=== PATIENT | male | born 1935 | race Caucasian/White ===

== ENCOUNTER → 2023-07-06 08:36 | Outpatient (REF) | payer OTHER, SELFPAY ==
[2023-07-06 09:30] LABS: Glycohemoglobin (HgbA1c) 7.2 % (4.0-5.6)
[2023-07-06 09:49] LABS: ALT (SGPT) 15 U/L (0-50); AST (SGOT) 23 U/L (17-59); Albumin 4.5 g/dl (3.5-5.0); Alkaline Phosphatase 71 U/L (38-126); Blood Urea Nitrogen 19 mg/dl (9-20); Calcium 9.5 mg/dl (8.4-10.2); Carbon Dioxide 27 mmol/L (22-30); Chloride 107 mmol/L (98-107); Glucose 135 mg/dl (70-99); Potassium 4.4 mmol/L (3.5-5.1); Sodium 140 mmol/L (135-145); Total Cholesterol 137 mg/dl (50-199); Total Protein 7.2 g/dl (6.3-8.2); Triglyceride 110 mg/dl (10-149); Very Low Density Lipoprotein 22 mg/dl (0-30); eGFR 58.53
[2023-07-06 09:50] LABS: HDL Cholesterol 50 mg/dl; LDL Cholesterol, Calculated 65 mg/dl
== END ==
LOC: REG 08:36
PROVIDERS: ATTENDING PHYSICIAN Family Medicine
DX: E11.59 Type 2 diabetes mellitus with other circulatory complications (principal); I10 Essential (primary) hypertension; I25.10 Atherosclerotic heart disease of native coronary artery without angina pectoris; Z68.30 Body mass index [BMI] 30.0-30.9, adult
CPT/HCPCS: 36415; 80053; 80061; 83036

== ENCOUNTER → 2023-12-18 08:01 | Outpatient (REF) | payer OTHER, SELFPAY | LOC: RCS 08:01 | PROVIDERS: ATTENDING PHYSICIAN Internal Medicine Cardiovascular Disease; FAMILY PHYSICIAN Family Medicine | DX: I47.20 Ventricular tachycardia, unspecified (principal); Z95.2 Presence of prosthetic heart valve; I44.2 Atrioventricular block, complete | CPT/HCPCS: 93306 ==

== ENCOUNTER → 2024-01-03 07:40 | Outpatient (REF) | payer OTHER, SELFPAY ==
[2024-01-03 10:25] LABS: % Basophils 0.5 % (0-2); % Eosinophils 0.6 % (0-6); % Immature Granulocytes 0.3 % (0-0.5); % Lymphocytes 14.7 % (20.5-51.1); % Monocytes 9.3 % (1.7-9.3); % Neutrophils 74.6 % (42.2-75.2); Absolute Lymphocytes 0.9 10^3/uL (1.2-3.4); Absolute Monocytes 0.6 10^3/uL (0.1-0.6); Absolute Neutrophils 4.7 10^3/uL (1.4-6.5); Hematocrit 47.4 % (39.0-52.0); Hemoglobin 15.8 g/dL (13.0-18.0); Mean Corp Hgb Conc. 33.3 g/dL (33.0-37.0); Mean Corpuscular Hgb 28.4 pg (27.0-31.0); Mean Corpuscular Volume 85.1 fL (80.0-94.0); Mean Platelet Volume 9.5 fL (7.4-10.4); Nucleated Red Blood Cells % 0 % (-); Platelet Count 143 10^3/uL (130-400); Red Blood Cell Count 5.57 10^6/uL (4.70-6.10); Red Cell Dist. Width 12.8 % (11.5-14.5); White Blood Cell Count 6.3 10^3/uL (4.8-10.8)
[2024-01-03 10:36] LABS: ALT (SGPT) 15 U/L (0-50); AST (SGOT) 28 U/L (17-59); Albumin 4.4 g/dl (3.5-5.0); Alkaline Phosphatase 59 U/L (38-126); Blood Urea Nitrogen 19 mg/dl (9-20); Calcium 9.5 mg/dl (8.4-10.2); Carbon Dioxide 24 mmol/L (22-30); Chloride 105 mmol/L (98-107); Glucose 117 mg/dl (70-99); HDL Cholesterol 58 mg/dl; LDL Cholesterol, Calculated 65 mg/dl; Potassium 4.3 mmol/L (3.5-5.1); Sodium 142 mmol/L (135-145); Total Bilirubin 1.2 mg/dl (0.2-1.3); Total Cholesterol 142 mg/dl (50-199); Total Protein 6.9 g/dl (6.3-8.2); Triglyceride 98 mg/dl (10-149); Very Low Density Lipoprotein 19 mg/dl (0-30); eGFR 48.65
[2024-01-03 12:17] LABS: Glycohemoglobin (HgbA1c) 6.6 % (4.0-5.6)
== END ==
LOC: REG 07:40
PROVIDERS: ATTENDING PHYSICIAN Family Medicine
DX: E11.59 Type 2 diabetes mellitus with other circulatory complications (principal); I10 Essential (primary) hypertension
CPT/HCPCS: 36415; 80053; 80061; 83036; 85025

== ENCOUNTER → 2024-12-26 07:26 | Outpatient (REF) | payer OTHER, SELFPAY ==
[2024-12-26 08:30] LABS: Hematocrit 41.6 % (39.0-52.0); Hemoglobin 13.2 g/dL (13.0-18.0); Mean Corp Hgb Conc. 31.7 g/dL (33.0-37.0); Mean Corpuscular Volume 84.9 fL (80.0-94.0); Platelet Count 226 10^3/uL (130-400); Red Cell Dist. Width 12.5 % (11.5-14.5)
[2024-12-26 08:40] LABS: ALT (SGPT) 25 U/L (0-50); AST (SGOT) 42 U/L (17-59); Albumin 3.9 g/dl (3.5-5.0); Alkaline Phosphatase 649 U/L (38-126); Blood Urea Nitrogen 21 mg/dl (9-20); C-Reactive Protein 29.60 mg/L (0.0-10.00); Calcium 9.6 mg/dl (8.4-10.2); Carbon Dioxide 28 mmol/L (22-30); Chloride 105 mmol/L (98-107); Glucose 122 mg/dl (70-99); HDL Cholesterol 42 mg/dl; LDL Cholesterol, Calculated 91 mg/dl; Potassium 5.3 mmol/L (3.5-5.1); Sodium 141 mmol/L (135-145); Total Protein 6.9 g/dl (6.3-8.2); Very Low Density Lipoprotein 22 mg/dl (0-30); eGFR 41.19
[2024-12-26 09:24] LABS: Nucleated Red Blood Cells % 0 % (-); Reticulocyte Count 1.2 % (0.4-2.8)
[2024-12-26 10:31] LABS: Glycohemoglobin (HgbA1c) 7.0 % (4.0-5.6)
[2024-12-28 01:13] LABS: ANA, IgG Reflex to HEp-2 None Detected (None Detected)
[2024-12-29 13:16] LABS: Rheumatoid Agglutinin Less Than 10 IU (<10 IU)
== END ==
LOC: REG 07:26
PROVIDERS: ATTENDING PHYSICIAN Physician Assistant
DX: R63.4 Abnormal weight loss (principal); R53.83 Other fatigue; M25.511 Pain in right shoulder; M25.512 Pain in left shoulder; I35.0 Nonrheumatic aortic (valve) stenosis; Z95.0 Presence of cardiac pacemaker; I44.2 Atrioventricular block, complete; I25.10 Atherosclerotic heart disease of native coronary artery without angina pectoris; Z86.718 Personal history of other venous thrombosis and embolism; N18.31 Chronic kidney disease, stage 3a; I48.19 Other persistent atrial fibrillation; Z79.01 Long term (current) use of anticoagulants; Z95.2 Presence of prosthetic heart valve; G40.119 Localization-related (focal) (partial) symptomatic epilepsy and epileptic syndromes with simple partial seizures, intractable, without status epilepticus; G30.1 Alzheimer's disease with late onset
CPT/HCPCS: 36415; 80053; 80061; 83036; 84443; 85025; 85045; 85652; 86038; 86140; 86430

== ENCOUNTER → 2025-01-12 09:42 | Outpatient (REF) | payer OTHER, SELFPAY | LOC: RAD 09:42 | PROVIDERS: ATTENDING PHYSICIAN Physician Assistant | DX: R74.8 Abnormal levels of other serum enzymes (principal); M25.511 Pain in right shoulder; M25.512 Pain in left shoulder; R63.4 Abnormal weight loss | CPT/HCPCS: 78306; A9503 ==

== ENCOUNTER → 2025-03-13 15:36 | Outpatient (REF) | payer OTHER, SELFPAY | LOC: RAD 15:36 | PROVIDERS: ATTENDING PHYSICIAN Internal Medicine Hematology & Oncology; FAMILY PHYSICIAN Family Medicine | DX: C61 Malignant neoplasm of prostate (principal) | CPT/HCPCS: 72170; 73552 ==